=== PATIENT | female | born 1935 ===

== ENCOUNTER 2025-02-15 11:05 | Outpatient (CLI) | payer SELFPAY | END 2025-02-15 11:06 | disposition home or self-care (01) | LOC: RAD 11:05 | PROVIDERS: ATTEND Internal Medicine Critical Care Medicine | DX: R06.00 Dyspnea, unspecified (principal); R91.8 Other nonspecific abnormal finding of lung field; J84.9 Interstitial pulmonary disease, unspecified | CPT/HCPCS: 71046 ==